=== PATIENT | male | born 1995 ===

== ENCOUNTER 2017-02-09 10:11 | Emergency (ER) | payer OTHER ==
[2017-02-09 10:20] VITALS: BP 143/89; PULSE 65; RESP 20; TEMP 98.4
--- NOTE | 2017-02-09 10:29 | ED ---
General Adult HPI - General Chief complaint: Extremity Injury, Upper Stated complaint: rt hand injury Time Seen by Provider: 02/09/17 10:23 Source: patient, RN notes reviewed Mode of arrival: ambulatory Limitations: no limitations - History of Present Illness Initial comments: Patient 21-year-old male who presents emergency room today with a chief complaint of injury to the right hand. He does admit that 2 days ago his little brother accidentally closed the car door on his hand. States he does have pain over the fourth MCP joint area. States a little swollen this area. Denies any other complaints or symptoms. Patient denies any recent fever, chills , shortness of breath, chest pain, back pain, abdominal pain, nausea or vomiting , numbness or tingling, dysuria or hematuria, constipation or diarrhea, headaches or visual changes, or any other complaints. - Related Data Home Medications Medication Instructions Recorded Confirmed No Known Home Medications [No 02/09/17 02/09/17 Known Home Medications] Allergies Allergy/AdvReac Type Severity Reaction Status Date / Time No Known Allergies Allergy Verified 02/09/17 10:33 Review of Systems ROS Statement: Those systems with pertinent positive or pertinent negative responses have been documented in the HPI. ROS Other: All systems not noted in ROS Statement are negative. Past Medical History Past Medical History: No Reported History History of Any Multi-Drug Resistant Organisms: None Reported Past Surgical History: Orthopedic Surgery Additional Past Surgical History / Comment(s): right hip. lacerated spleen. testicle Past Psychological History: No Psychological Hx Reported Smoking Status: Current every day smoker Past Alcohol Use History: Occasional Past Drug Use History: None Reported General Exam - General Exam Comments Initial Comments: General: The patient is awake and alert, in no distress, and does not appear acutely ill. Neck: The neck is supple, there is no tenderness or JVD. Cardiovascular: There is a regular rate and rhythm. No murmur, rub or gallop is appreciated. Respiratory: Lungs are clear to auscultation, respirations are non-labored, breath sounds are equal. No wheezes, stridor, rales, or rhonchi. Musculoskeletal: Patient does have some moderate swelling over the fourth MCP joint. Locally tender in this area. Cap refill less than 2 seconds. Sensation intact with pulses equal bilaterally 2+. Shows full range of motion. Strength is 5/5. Neurological: A&O x 3. CN II-XII intact, There are no obvious motor or sensory deficits. Coordination appears grossly intact. Speech is normal. Skin: Skin is warm and dry and no rashes or lesions are noted. Psychiatric: Normal mood and affect. Limitations: no limitations Course Vital Signs 02/09/17 10:14 Temperature 98.4 F Pulse Rate 65 Respiratory 20 Rate Blood Pressure 143/89 O2 Sat by Pulse 99 Oximetry Medical Decision Making - Medical Decision Making Patient's x-rays reviewed and does show mid shaft fourth metacarpal fracture. Results were discussed with the patient. Has been splinted in a ulnar gutter splint. Advised patient to follow up orthopedics in the next 2 days and continued ice elevate and leave splint on until follow-up appointment. Disposition Clinical Impression: Boxers fracture Disposition: HOME SELF-CARE Condition: Good Instructions: Boxer Fracture (ED) Additional Instructions: Please see splinted in place until follow-up with orthopedics over the next 2 days. Please continue to ice elevate the affected area. Please return to emergency room if any symptoms increase or worsen or for any other concerns. Referrals: None,Stated [Primary Care Provider] - 1-2 days Nathanael Vasquez MD [STAFF PHYSICIAN] - 1-2 days Time of Disposition: 11:03
--- NOTE | 2017-02-09 10:49 | XR ---
Right hand HISTORY: Trauma and pain 3 views of the right hand There is a nondisplaced fracture of the fourth metacarpal mid diaphysis. Slight volar angulation is p resent. IMPRESSION: Fourth metacarpal fracture
== END 2017-02-09 11:35 | disposition home or self-care (01) ==
LOC: EC 10:11
DX: S62.354A Nondisplaced fracture of shaft of fourth metacarpal bone, right hand, initial encounter for closed fracture (principal); F17.200 Nicotine dependence, unspecified, uncomplicated; W23.0XXA Caught, crushed, jammed, or pinched between moving objects, initial encounter
CPT/HCPCS: 29125; 99283

== ENCOUNTER 2017-05-03 19:01 | Emergency (ER) | payer OTHER ==
[2017-05-03] MEDS ORDERED: HYDROcodone/APAP 5-325MG 1 EACH TAB PO STA (20:10)
--- NOTE | 2017-05-03 20:34 | XR ---
EXAMINATION TYPE: XR chest 2V DATE OF EXAM: 05/03/2017 COMPARISON: NONE HISTORY: Pain TECHNIQUE: Frontal and lateral views of the chest are obtained. FINDINGS: Heart and mediastinum are normal. Lungs are clear. Diaphragm is normal. Bony thorax is int act. IMPRESSION: Normal chest.
--- NOTE | 2017-05-03 20:37 | ED ---
General Adult HPI - General Chief complaint: Back Pain/Injury Stated complaint: back pain Time Seen by Provider: 05/03/17 19:36 Source: patient Mode of arrival: ambulatory Limitations: no limitations - History of Present Illness Initial comments: 21-year-old male patient presented to emergency department today for evaluation of left-sided rib pain for the last 3 days. Patient states that the pain is on the left side near the midaxillary line. Patient states that the pain increases with deep breathing, movement of the left arm, or any twisting motion. Patient states that the pain is worse when pressing on the area. Mother states that she did give him some Flexeril and Mobic which did not help the pain. Patient states that about a week ago he was wrestling around with some relatives, does not remember any injury at that time. Denies any history of similar symptoms. Patient states he has had a cough for the last 24 hours, states it is dry, denies any sputum production. Denies any fever, chills, rash , headache, neck pain, back pain, dizziness, weakness, abdominal pain, nausea, vomiting, difficulty with urination or bowel movements. - Related Data Previous Rx's Medication Instructions Recorded Ibuprofen 800 mg PO TID PRN #30 tablet 05/03/17 Allergies Allergy/AdvReac Type Severity Reaction Status Date / Time No Known Allergies Allergy Verified 02/09/17 10:33 Review of Systems ROS Statement: Those systems with pertinent positive or pertinent negative responses have been documented in the HPI. ROS Other: All systems not noted in ROS Statement are negative. Past Medical History Past Medical History: No Reported History History of Any Multi-Drug Resistant Organisms: None Reported Past Surgical History: Orthopedic Surgery Additional Past Surgical History / Comment(s): right hip. lacerated spleen. testicle Past Psychological History: No Psychological Hx Reported Smoking Status: Current every day smoker Past Alcohol Use History: Occasional Past Drug Use History: None Reported General Exam Limitations: no limitations General appearance: alert, in no apparent distress Head exam: Present: atraumatic, normocephalic, normal inspection Eye exam: Present: normal appearance, PERRL, EOMI. Absent: scleral icterus, conjunctival injection, periorbital swelling ENT exam: Present: normal exam, normal oropharynx, mucous membranes moist Neck exam: Present: normal inspection, full ROM, other (No tenderness, step-off , or deformity noted to for midline palpation of the posterior cervical spine. Full range of motion without pain or limitation.). Absent: tenderness, meningismus, lymphadenopathy Respiratory exam: Present: normal lung sounds bilaterally, chest wall tenderness (Over the left ribs at the midaxillary line.), other (Skin over the left ribs was examined was pink, warm, and dry. No evidence for rash, erythema , or ecchymosis.). Absent: respiratory distress, wheezes, rales, rhonchi, stridor, accessory muscle use Cardiovascular Exam: Present: regular rate, normal rhythm, normal heart sounds. Absent: systolic murmur, diastolic murmur, rubs, gallop, clicks GI/Abdominal exam: Present: soft, normal bowel sounds. Absent: distended, tenderness, guarding, rebound, rigid Extremities exam: Present: normal inspection, full ROM, normal capillary refill , other (Increased pain to left ribs with range of motion of the left upper extremity.). Absent: tenderness, pedal edema, joint swelling, calf tenderness Back exam: Present: normal inspection, full ROM, other (No tenderness, step-off , or deformity noted to for midline palpation of the thoracic and lumbar vertebrae.). Absent: tenderness, CVA tenderness (R), CVA tenderness (L), vertebral tenderness Psychiatric exam: Present: normal affect, normal mood Skin exam: Present: warm, dry, intact, normal color. Absent: rash Course Vital Signs 05/03/17 05/03/17 19:12 21:06 Temperature 98.1 F 97.6 F Pulse Rate 95 85 Respiratory 20 18 Rate Blood Pressure 119/80 131/76 O2 Sat by Pulse 100 97 Oximetry EKG Findings - EKG Comments: EKG Findings:: EKG obtained at 2028 reveals normal sinus rhythm with a ventricular rate of 72, WA interval 1:30, QRS duration 86, QT 368, QTC 402. No evidence for ST elevation or depression in any lead. Medical Decision Making - Medical Decision Making 21 year-old male patient presented for evaluation of left-sided rib pain. Two- view chest x-ray was obtained and showed no acute cardiopulmonary process, bony thorax was intact. EKG was obtained and showed normal sinus rhythm without any ST elevation noted. Physical exam did reveal pain with palpation over the left ribs near the midaxillary line, pain with range of motion of the left shoulder, and increased pain with deep inspiration. Patient vital signs are within normal limits. Patient will be discharged home with instructions to follow-up with his primary care physician one to 2 days for recheck. Instructed to take ibuprofen 3 times daily with meals for pain control. Instructed to apply heat over the painful area. Patient instructed to return immediately for any new, worsening, or concerning symptoms. - Radiology Data Radiology results: report reviewed, image reviewed Frontal and lateral views of the chest are obtained, heart and mediastinum are normal. Lungs are clear. Diaphragm is normal. Bony thorax is intact. Impression by Dr. Harkins shows normal chest. Disposition Clinical Impression: Costochondritis Disposition: HOME SELF-CARE Condition: Good Instructions: Costochondritis (ED) Additional Instructions: Apply heat to the painful areas. Take ibuprofen as directed to reduce inflammation. Follow up with primary care physician for recheck in 1-2 days. Return immediately for any new, worsening, or concerning symptoms. Prescriptions: Ibuprofen 800 mg PO TID PRN #30 tablet PRN Reason: Pain Referrals: None,Stated [Primary Care Provider] - 1-2 days Time of Disposition: 20:51
[2017-05-03 21:07] VITALS: BP 131/76; PULSE 85; RESP 18; TEMP 97.6
== END 2017-05-03 21:06 | disposition home or self-care (01) ==
LOC: EC 19:01
DX: M94.0 Chondrocostal junction syndrome [Tietze] (principal); R05 Cough; F17.200 Nicotine dependence, unspecified, uncomplicated
CPT/HCPCS: 71020; 93005; 99283

== ENCOUNTER 2018-02-01 08:32 | Emergency (ER) | payer OTHER ==
[2018-02-01 08:41] VITALS: BP 128/88; PULSE 63; RESP 16; TEMP 98
--- NOTE | 2018-02-01 08:58 | ED ---
ENT HPI - General Chief complaint: ENT Stated complaint: Ear Ache Time Seen by Provider: 02/01/18 08:43 Source: patient, RN notes reviewed, old records reviewed Mode of arrival: ambulatory Limitations: no limitations - History of Present Illness Initial comments: 22-year-old male presents emergency department today she is complaining of right ear pain. He reports that he has had chronic ear infections in the right ear since he was a young child. Patient states that today in a few days ago started noticed increased pain and drainage from the ear. Patient reports that he has had no fevers or chills. Reports no changes in his balance or denies any dizziness. He states he is not on any recent antibiotics. Patient denies any recent fever, chills, shortness of breath, chest pain, back pain, abdominal pain, nausea vomiting, numbness or tingling, dysuria or hematuria, constipation or diarrhea, headaches or visual changes, or any other current symptoms - Related Data Previous Rx's Medication Instructions Recorded Amoxic-Pot Clav 875-125Mg 1 tab PO Q12HR #20 tablet 02/01/18 [Augmentin 875-125] Ciprofloxacin Ophth Soln [Cipro 10 drops RIGHT EAR BID #1 bottle 02/01/18 Ophth Soln] Allergies Allergy/AdvReac Type Severity Reaction Status Date / Time No Known Allergies Allergy Verified 02/01/18 08:45 Review of Systems ROS Statement: Those systems with pertinent positive or pertinent negative responses have been documented in the HPI. ROS Other: All systems not noted in ROS Statement are negative. Past Medical History Past Medical History: No Reported History History of Any Multi-Drug Resistant Organisms: None Reported Past Surgical History: Orthopedic Surgery Additional Past Surgical History / Comment(s): right hip. lacerated spleen. testicle Past Psychological History: No Psychological Hx Reported Smoking Status: Current every day smoker Past Alcohol Use History: Occasional Past Drug Use History: None Reported General Exam - General Exam Comments Initial Comments: 22-year-old male. Alert and oriented. No acute distress. Limitations: no limitations Head exam: Present: atraumatic, normocephalic, normal inspection Eye exam: Present: normal appearance, PERRL, EOMI. Absent: scleral icterus, conjunctival injection, periorbital swelling ENT exam: Present: normal exam, mucous membranes moist. Absent: TM's normal bilaterally (Patient has an erythematous right TM. Evidence of a perforated TM at the 10 o'clock position.) Neck exam: Present: normal inspection. Absent: tenderness, meningismus, lymphadenopathy Respiratory exam: Present: normal lung sounds bilaterally. Absent: respiratory distress, wheezes, rales, rhonchi, stridor Cardiovascular Exam: Present: regular rate, normal rhythm, normal heart sounds. Absent: systolic murmur, diastolic murmur, rubs, gallop, clicks GI/Abdominal exam: Present: soft, normal bowel sounds. Absent: distended, tenderness, guarding, rebound, rigid Extremities exam: Present: normal inspection, full ROM, normal capillary refill. Absent: tenderness, pedal edema, joint swelling, calf tenderness Back exam: Present: normal inspection Neurological exam: Present: alert, oriented X3, CN II-XII intact Psychiatric exam: Present: normal affect, normal mood Skin exam: Present: warm, dry, intact, normal color. Absent: rash Course Vital Signs 02/01/18 08:38 Temperature 98 F Pulse Rate 63 Respiratory 16 Rate Blood Pressure 128/88 O2 Sat by Pulse 99 Oximetry Medical Decision Making - Medical Decision Making 22-year-old male presents emergency room today chief complaint of drainage from his right ear. He has an erythematous TM with evidence of perforation. Patient has had ear infections for quite some time as child. At this time I'll put the patient on Augmentin and Cipro drops. 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 All questions answered return parameters were discussed. Disposition Clinical Impression: Acute otitis media with perforated tympanic membrane Disposition: HOME SELF-CARE Condition: Good Instructions: Earache (ED) Additional Instructions: Patient advised to follow-up with her nose and throat specialist. Take antibiotics as prescribed. Return to the emergency department if any alarming signs or symptoms occur. Use the eardrops 10 drops in the ear twice a day for the next week. Prescriptions: Amoxic-Pot Clav 875-125Mg [Augmentin 875-125] 1 tab PO Q12HR #20 tablet Ciprofloxacin Ophth Soln [Cipro Ophth Soln] 10 drops RIGHT EAR BID #1 bottle Is patient prescribed a controlled substance at d/c from ED?: No If prescribed controlled substance>3 days was MAPS reviewed?: No When asked, does pt state using other controlled substances?: No Referrals: None,Stated [Primary Care Provider] - 1-2 days Shaina Whelan MD [STAFF PHYSICIAN] - 1-2 days Saad Crawford MD [STAFF PHYSICIAN] - 1-2 days Time of Disposition: 08:56
== END 2018-02-01 09:06 | disposition home or self-care (01) ==
LOC: EC 08:32
DX: H66.91 Otitis media, unspecified, right ear (principal); H72.91 Unspecified perforation of tympanic membrane, right ear; F17.200 Nicotine dependence, unspecified, uncomplicated
CPT/HCPCS: 99283

== ENCOUNTER 2018-02-03 03:30 | Emergency (ER) | payer OTHER ==
[2018-02-03 03:40] VITALS: BP 141/68; PULSE 71; RESP 18; TEMP 98.2
[2018-02-03] MEDS ORDERED: IBUPROFEN 600 MG TAB PO STA (03:50)
[2018-02-03] MEDS ORDERED: ACET/COD 300 MG/30 MG STARTER PACK 6 TAB BTL PO STA (03:51)
[2018-02-03] MEDS ORDERED: predniSONE 50 MG TAB PO STA (03:51)
[2018-02-03] MEDS ORDERED: Acetaminophen-Codeine 300-30mg TAB PO STA (03:51)
--- NOTE | 2018-02-03 03:54 | ED ---
General Adult HPI - General Chief complaint: ENT Stated complaint: Earache Time Seen by Provider: 02/03/18 03:30 Source: patient, RN notes reviewed Mode of arrival: ambulatory Limitations: no limitations - History of Present Illness Initial comments: This is a 22-year-old male comes emergency Department stating that he was given antibiotics and some eardrops here yesterday but he continues to have pain on the inside of his ear. Patient states she has not taken any pain medicines even [id number] medicines. Patient states she's had no fever there's been no drainage today. Patient denies any sore throat. Patient denies any redness or swelling to the exterior aspect of his scalp or neck. Patient's main complaint is that the pain is keeping him up tonight. - Related Data Previous Rx's Medication Instructions Recorded Amoxic-Pot Clav 875-125Mg 1 tab PO Q12HR #20 tablet 02/01/18 [Augmentin 875-125] Ciprofloxacin Ophth Soln [Cipro 10 drops RIGHT EAR BID #1 bottle 02/01/18 Ophth Soln] predniSONE 40 mg PO DAILY #8 tab 02/03/18 Allergies Allergy/AdvReac Type Severity Reaction Status Date / Time No Known Allergies Allergy Verified 02/03/18 03:39 Review of Systems ROS Statement: Those systems with pertinent positive or pertinent negative responses have been documented in the HPI. ROS Other: All systems not noted in ROS Statement are negative. Past Medical History Past Medical History: No Reported History History of Any Multi-Drug Resistant Organisms: None Reported Past Surgical History: Orthopedic Surgery Additional Past Surgical History / Comment(s): right hip. lacerated spleen. testicle Past Psychological History: No Psychological Hx Reported Smoking Status: Current every day smoker Past Alcohol Use History: Occasional Past Drug Use History: Marijuana General Exam - General Exam Comments Initial Comments: GENERAL Patient is well-developed and well-nourished. Patient is in mild distress. EYES Patient's pupils are equal and round. Extraocular motion is intact ENT Patient's right tympanic membrane is red and bulging. The ear canal is also full of exudate and is red. SKIN Unremarkable NEURO The patient is alert and oriented 3 PYSCH Patient has normal interpersonal interactions. Limitations: no limitations Course Vital Signs 02/03/18 03:37 Temperature 98.2 F Pulse Rate 71 Respiratory 18 Rate Blood Pressure 141/68 O2 Sat by Pulse 97 Oximetry Disposition Clinical Impression: Otitis media, Otitis externa Disposition: HOME SELF-CARE Instructions: Earache (ED) Additional Instructions: Patient should take the Tylenol with Codeine and take the prednisone as prescribed. Once the Tylenol with codeine is gone he can take Tylenol. Patient should continue the antibiotics and eardrops. Prescriptions: predniSONE 40 mg PO DAILY #8 tab Is patient prescribed a controlled substance at d/c from ED?: No When asked, does pt state using other controlled substances?: No Referrals: None,Stated [Primary Care Provider] - 1-2 days Time of Disposition: 03:54
== END 2018-02-03 04:07 | disposition home or self-care (01) ==
LOC: EC 03:30
DX: H66.91 Otitis media, unspecified, right ear (principal); H60.91 Unspecified otitis externa, right ear; F17.200 Nicotine dependence, unspecified, uncomplicated
CPT/HCPCS: 99283; J7512

== ENCOUNTER 2018-02-19 23:40 | Emergency (ER) | payer OTHER ==
[2018-02-19 23:59] VITALS: RESP 18
[2018-02-20] MEDS ORDERED: CIPROFLOXACIN-DEXAMETH 0.3-0.1% DROPS 7.5 ML BTL BOTH EARS STA (01:37)
--- NOTE | 2018-02-20 01:43 | ED ---
ENT HPI - General Chief complaint: ENT Stated complaint: ear pain Time Seen by Provider: 02/20/18 00:46 Source: patient, RN notes reviewed, old records reviewed Mode of arrival: ambulatory Limitations: no limitations - History of Present Illness Initial comments: This patient is a 22 year old male with CC of right ear pain. Patient reports a history of right ear infections and has recently been on antibiotics for Right otitis externa and interna. Patient reports that his ear is not draining as bad as it was in the past, however he is now out of his drops. Patient states that his hear was hurting today, therefore he did not go to work. - Related Data Previous Rx's Medication Instructions Recorded Amoxic-Pot Clav 875-125Mg 1 tab PO Q12HR #20 tablet 02/01/18 [Augmentin 875-125] Ciprofloxacin Ophth Soln [Cipro 10 drops RIGHT EAR BID #1 bottle 02/01/18 Ophth Soln] predniSONE 40 mg PO DAILY #8 tab 02/03/18 Ciprofloxacin Ophth Soln [Cipro 10 drops RIGHT EAR BID #1 bottle 02/20/18 Ophth Soln] Allergies Allergy/AdvReac Type Severity Reaction Status Date / Time No Known Allergies Allergy Verified 02/19/18 23:59 Review of Systems ROS Statement: Those systems with pertinent positive or pertinent negative responses have been documented in the HPI. ROS Other: All systems not noted in ROS Statement are negative. 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 lacerated spleen. testicle Past Psychological History: No Psychological Hx Reported Smoking Status: Current every day smoker Past Alcohol Use History: Occasional Past Drug Use History: Marijuana General Exam - General Exam Comments Initial Comments: This is a 22 year old male, alert and oriented. Limitations: no limitations General appearance: alert, in no apparent distress Head exam: Present: atraumatic, normocephalic, normal inspection Eye exam: Present: normal appearance, PERRL, EOMI. Absent: scleral icterus, conjunctival injection, periorbital swelling ENT exam: Present: normal exam, mucous membranes moist, other (evidence of otitis externa. ). Absent: TM's normal bilaterally (Erythematous right TM. ) Neck exam: Present: normal inspection. Absent: tenderness, meningismus, lymphadenopathy Respiratory exam: Present: normal lung sounds bilaterally. Absent: respiratory distress, wheezes, rales, rhonchi, stridor Cardiovascular Exam: Present: regular rate, normal rhythm, normal heart sounds. Absent: systolic murmur, diastolic murmur, rubs, gallop, clicks GI/Abdominal exam: Present: soft, normal bowel sounds. Absent: distended, tenderness, guarding, rebound, rigid Extremities exam: Present: normal inspection, full ROM, normal capillary refill. Absent: tenderness, pedal edema, joint swelling, calf tenderness Back exam: Present: normal inspection Neurological exam: Present: alert, oriented X3, CN II-XII intact Course Vital Signs 02/19/18 02/20/18 23:53 01:49 Temperature 98.5 F 98.4 F Pulse Rate 78 64 Respiratory 18 18 Rate Blood Pressure 134/91 107/60 O2 Sat by Pulse 97 97 Oximetry Medical Decision Making - Medical Decision Making 22 year old male presents with right ear pain. He has evidence of otitis externa and will be started on Ciprodex. Will DC with Rx of cipro drops. I urged the patient to follow up with ENT and return parameters discussed. Disposition Clinical Impression: Otitis externa Disposition: ADMITTED IP TO THIS HOSP Condition: Good Instructions: Earache (ED) Additional Instructions: Patient has a follow-up with primary care provider in the Ear, nose and throat specialist. Use the drops. Return to emergency department if any alarming signs or symptoms occur. Prescriptions: Ciprofloxacin Ophth Soln [Cipro Ophth Soln] 10 drops RIGHT EAR BID #1 bottle Is patient prescribed a controlled substance at d/c from ED?: No When asked, does pt state using other controlled substances?: No If prescribed controlled substance>3 days was MAPS reviewed?: No If opioid is for acute pain is fill amount 7 days or less?: No If Rx opioid, was Start Talking consent form obtained?: No Referrals: None,Stated [Primary Care Provider] - 1-2 days Andi Grove DO [Doctor of Osteopathic Medicine] - 1-2 days Time of Disposition: 01:41
[2018-02-20 01:50] VITALS: BP 107/60; PULSE 64; TEMP 98.4
== END 2018-02-20 01:54 | disposition other institution (70) ==
LOC: EC 23:40
DX: H60.91 Unspecified otitis externa, right ear (principal); F17.200 Nicotine dependence, unspecified, uncomplicated; Z86.14 Personal history of Methicillin resistant Staphylococcus aureus infection
CPT/HCPCS: 99283

== ENCOUNTER 2018-06-28 22:56 | Emergency (ER) | payer OTHER ==
[2018-06-28 23:03] VITALS: BP 118/82; PULSE 74; RESP 16; TEMP 98.4
[2018-06-28] MEDS ORDERED: AMOXICILLIN 875 MG TAB PO STA (23:35)
--- NOTE | 2018-06-28 23:35 | ED ---
General Adult HPI - General Source: patient Mode of arrival: ambulatory Limitations: no limitations <Tata Blanton - Last Filed: 06/29/18 00:24> <Jacinda Skinner - Last Filed: 06/29/18 02:09> - General Chief complaint: Skin/Abscess/Foreign Body Stated complaint: rash,ENT Time Seen by Provider: 06/28/18 23:17 - History of Present Illness Initial comments: 22-year-old male patient presents to the emergency department today for evaluation of right ear pain and intermittent itching to his bilateral arms. Patient states that he started a new job about 4 days ago. States that each day after shift and he develops itching to the bilateral arms after he gets into bed. Patient states that there could be a new detergent on his sheets. 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 Patient denies any current rash or itching. Denies any drainage or lesions to the arm. Denies any fever or chills. Patient states he has been having right ear pain since last night. States that he has been having green drainage from the ear and occasionally does have presence of blood. Patient states he does have history of frequent ear infections especially as a child. States that he has had some nasal congestion over the last several days but denies any cough, sore throat, fever, or chills. Patient denies any recent shortness breath, chest pain, abdominal pain, nausea, vomiting , diarrhea, constipation, back pain, numbness, tingling, dizziness, weakness, hematuria, dysuria, urinary urgency, urinary frequency, headache, visual changes , or any other complaints. (Tata Blanton) - Related Data Previous Rx's Medication Instructions Recorded Amoxicillin 875 mg PO Q12HR #20 tablet 06/28/18 Allergies Allergy/AdvReac Type Severity Reaction Status Date / Time No Known Allergies Allergy Verified 06/28/18 23:12 Review of Systems ROS Other: All systems not noted in ROS Statement are negative. <Tata Blanton - Last Filed: 06/29/18 00:24> ROS Other: All systems not noted in ROS Statement are negative. <Jacinda Skinner - Last Filed: 06/29/18 02:09> ROS Statement: Those systems with pertinent positive or pertinent negative responses have been documented in the HPI. 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 lacerated spleen. testicle Past Psychological History: No Psychological Hx Reported Smoking Status: Current every day smoker Past Alcohol Use History: Occasional Past Drug Use History: Marijuana <Tata Blanton M - Last Filed: 06/29/18 00:24> General Exam Limitations: no limitations General appearance: alert, in no apparent distress, other (This is a well- developed, well-nourished adult male patient in no acute distress. Vital signs upon presentation are temperature 98.4F, pulse 74, respirations 16, blood pressure 118/82, pulse ox 98% on room air.) Eye exam: Present: normal appearance, PERRL, EOMI. Absent: scleral icterus, conjunctival injection, periorbital swelling ENT exam: Present: normal exam, normal oropharynx, mucous membranes moist. Absent: TM's normal bilaterally (Right tympanic membrane appears to be perforated, there is erosion. There is some green drainage in the ear canal. No canal erythema or swelling. No mastoid tenderness.) Neck exam: Present: normal inspection. Absent: tenderness, meningismus, lymphadenopathy Respiratory exam: Present: normal lung sounds bilaterally. Absent: respiratory distress, wheezes, rales, rhonchi, stridor Cardiovascular Exam: Present: regular rate, normal rhythm, normal heart sounds. Absent: systolic murmur, diastolic murmur, rubs, gallop, clicks Extremities exam: Present: normal inspection, full ROM, normal capillary refill. Absent: tenderness, pedal edema, joint swelling, calf tenderness Neurological exam: Present: alert, oriented X3, CN II-XII intact Psychiatric exam: Present: normal affect, normal mood Skin exam: Present: warm, dry, intact, normal color. Absent: rash <Tata Blanton M - Last Filed: 06/29/18 00:24> Vital Signs 06/28/18 22:59 Temperature 98.4 F Pulse Rate 74 Respiratory 16 Rate Blood Pressure 118/82 O2 Sat by Pulse 98 Oximetry Medical Decision Making <Tata Blanton M - Last Filed: 06/29/18 00:24> <Jacinda Skinner P - Last Filed: 06/29/18 02:09> - Medical Decision Making 22-year-old male patient presents to the emergency department today for evaluation of right ear pain and intermittent itchiness to the bilateral arms. Physical examination does reveal evidence of perforated right tympanic membrane. Green drainage noted to the right ear canal. No mastoid tenderness, no lymphadenopathy. Patient is able to hear. Did evaluate the arms or is no evidence of rash there is some minor skin irritation. Did discuss that his symptoms are most likely related to a contact irritation or dermatitis. He is instructed to change detergents and his bedding. He is instructed to wear long sleeves at work. He will be given a prescription for right otitis media. He is instructed to follow-up with the ear, nose, and throat specialist for further evaluation. Return parameters discussed in detail. He verbalizes understanding and agrees with this plan. (Tata Blanton) I was available for consultation in the emergency department. The history and physical exam were done by the midlevel provider. I was consulted for this patient's care. I reviewed the case with the midlevel provider and based on their presentation of the patient, I agree with the assessment, medical decision making and plan of care as documented. (Jacinda Skinner) Disposition Is patient prescribed a controlled substance at d/c from ED?: No Time of Disposition: 23:34 <Tata Blanton - Last Filed: 06/29/18 00:24> <Jacinda Skinner - Last Filed: 06/29/18 02:09> Clinical Impression: Right otitis media, Contact dermatitis, Rupture of right tympanic membrane Disposition: HOME SELF-CARE Condition: Good Instructions: Contact Dermatitis (ED), Ruptured Eardrum (ED), Ear Infection (ED ) Additional Instructions: Plan warm compresses to the right ear. Take antibiotic prescription as directed. Follow-up with the ear, nose, and throat specialist for further evaluation. Return here immediately for any new, worsening, or concerning symptoms. Prescriptions: Amoxicillin 875 mg PO Q12HR #20 tablet Referrals: Andi Grove DO [Doctor of Osteopathic Medicine] - 1-2 days
== END 2018-06-28 23:55 | disposition home or self-care (01) ==
LOC: EC 22:56
DX: H66.91 Otitis media, unspecified, right ear (principal); H72.91 Unspecified perforation of tympanic membrane, right ear; L25.9 Unspecified contact dermatitis, unspecified cause; F17.200 Nicotine dependence, unspecified, uncomplicated; Z86.14 Personal history of Methicillin resistant Staphylococcus aureus infection
CPT/HCPCS: 99282

== ENCOUNTER 2020-01-02 07:02 | Emergency (ER) | payer OTHER ==
[2020-01-02 07:10] VITALS: RESP 18
--- NOTE | 2020-01-02 07:32 | ED ---
Male Urogenital HPI - General Chief complaint: Urogenital Stated complaint: poss hernia Time Seen by Provider: 01/02/20 07:12 Source: patient Mode of arrival: ambulatory Limitations: no limitations - History of Present Illness Initial comments: Patient is a 24-year-old male presenting to the emergency Department with complaints of left sided testicular pain and swelling for 3 days. Patient thinks the pain started after having intercourse 3 days ago. Patient states he "googled his symptoms and was concerned for torsion." Patient states he feels comfortable at rest laying in the bed however has increased pain with prolonged sitting or walking. Patient feels like the left side of the scrotum is swollen and tender to the touch. He denies history of hernia. He denies concerns for STDs. He denies having fever, chills, vomiting. He denies dysuria, discharge. He does have some nausea episodes when the pain increases. He denies any other pertinent past medical history. He has no other complaints at this time. Upon arrival to the ER, his vital signs are stable. - Related Data Previous Rx's Medication Instructions Recorded Amoxicillin 875 mg PO Q12HR #20 tablet 06/28/18 Doxycycline [Vibramycin] 100 mg PO BID 10 Days #20 capsule 01/02/20 Allergies Allergy/AdvReac Type Severity Reaction Status Date / Time No Known Allergies Allergy Verified 01/02/20 07:10 Review of Systems ROS Statement: Those systems with pertinent positive or pertinent negative responses have been documented in the HPI. ROS Other: All systems not noted in ROS Statement are negative. 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 lacerated spleen. testicle Past Psychological History: No Psychological Hx Reported Smoking Status: Current every day smoker Past Alcohol Use History: Occasional Past Drug Use History: Marijuana General Exam - General Exam Comments Initial Comments: GENERAL: Well-appearing, well-nourished and in no acute distress. HEAD: Atraumatic, normocephalic. EYES: Pupils equal round and reactive to light, extraocular movements intact, sclera anicteric, conjunctiva are normal. ENT: Moist mucous membranes. NECK: Normal range of motion, supple without lymphadenopathy or JVD. LUNGS: Breath sounds clear to auscultation bilaterally and equal. No wheezes rales or rhonchi. HEART: Regular rate and rhythm without murmurs, rubs or gallops. ABDOMEN: Soft, nontender, normoactive bowel sounds. No guarding, no rebound. No masses appreciated. : Mild swelling of the left side of the scrotum, painful with palpation. No significant erythema. EXTREMITIES: Normal range of motion, no pitting or edema. No clubbing or cyanosis. NEUROLOGICAL: Normal speech, normal gait. PSYCH: Normal mood, normal affect. SKIN: Warm, Dry, normal turgor, no rashes or lesions noted. Limitations: no limitations Course Vital Signs 01/02/20 01/02/20 07:09 09:15 Temperature 98.6 F 98 F Pulse Rate 69 71 Respiratory 18 18 Rate Blood Pressure 132/79 120/83 O2 Sat by Pulse 96 98 Oximetry Medical Decision Making - Medical Decision Making Patient is a 24-year-old male presenting with left-sided scrotal swelling and pain 3 days. His vitals are stable, afebrile. He denies dysuria or discharge. Exam reveals mild swelling of the left side of the scrotum. Ultrasound reveals possible left-sided epididymitis, no evidence of torsion. Urine did show 20 WBCs. Gonorrhea and chlamydia is pending at this time. I discussed these findings with the patient. Patient will be treated with 250 mg of Rocephin in the ER and also be started on doxycycline. He will follow up with his PCP. He is in agreement with this plan of care. Return parameters were discussed with the patient he verbalizes understanding. Case discussed with Dr. Rick. - Lab Data Lab Results 01/02/20 Range/Units 07:25 Urine Color Yellow Urine Appearance Clear (Clear) Urine pH 6.0 (5.0-8.0) Ur Specific [place] 1.029 (1.001-1.035) Urine Protein Negative (Negative) Urine Glucose (UA) Negative (Negative) Urine Ketones Negative (Negative) Urine Blood Negative (Negative) Urine Nitrite Negative (Negative) Urine Bilirubin Negative (Negative) Urine Urobilinogen <2.0 (<2.0) mg/dL Ur Leukocyte Esterase Small H (Negative) Urine RBC 2 (0-5) /hpf Urine WBC 20 H (0-5) /hpf Urine Mucus Occasional H (None) /hpf Disposition Clinical Impression: Epididymitis, left, Testicle pain Disposition: HOME SELF-CARE Condition: Stable Instructions (If sedation given, give patient instructions): Epididymitis (ED) Additional Instructions: Please return to the Emergency Department if symptoms worsen or any other concerns. Take antibiotic as prescribed. Follow up with PCP. Prescriptions: Doxycycline [Vibramycin] 100 mg PO BID 10 Days #20 capsule Is patient prescribed a controlled substance at d/c from ED?: No Referrals: None,Stated [Primary Care Provider] - 1-2 days
[2020-01-02 08:10] LABS: Appearance,Urine Clear (Clear); Bilirubin,Urine Negative (Negative); Blood,Urine Negative (Negative); Color,Urine Yellow; Glucose,Urine (UA) Negative (Negative); Ketones,Urine Negative (Negative); Leukocyte Esterase,Urine Small (Negative); Mucus,Urine Occasional /hpf; Nitrite,Urine Negative (Negative); Protein,Urine Negative (Negative); RBC,Urine 2 /hpf (0-5); Specific Gravity,Urine 1.029 (1.001-1.035); Urobilinogen,Urine <2.0 mg/dL (<2.0); WBC,Urine 20 /hpf (0-5)
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
[2020-01-02] MEDS ORDERED: cefTRIAXone 250 MG VIAL IM STA (08:46)
[2020-01-02] MEDS ORDERED: LIDOCAINE 1% INJ 10MG/ML (20 ML MDV) SQ ONE (09:11)
[2020-01-02 09:16] VITALS: BP 120/83; PULSE 71; TEMP 98
== END 2020-01-02 09:15 | disposition home or self-care (01) ==
LOC: EC 07:02
DX: N45.1 Epididymitis (principal); F17.200 Nicotine dependence, unspecified, uncomplicated; Z86.14 Personal history of Methicillin resistant Staphylococcus aureus infection
CPT/HCPCS: 81001; 87491; 87591; 93975; 76870; 96372; 99284; J2001; J0696